=== PATIENT | female | born 1955 | race Caucasian/White ===

== ENCOUNTER → 2016-11-14 | Outpatient (CLI) | payer BC ==
[~2016-11-14] MED LIST: ACETAMINOPHEN325 M1 PO; ALLERGY INJECTION SUBQ; ASPIR 8181 MG PO; IBUPROFEN 200200 M1 PO; IBUPROFEN 600600 M1 PO; IRON; LEVOTHROID25 MCG PO; LEVOTHYROXIN0.088 MG PO; NORCO 5-325 TA1 EACH PO; NORFLEX100 MG PO; OMEGA-3100 MG PO; PHENERGAN-CODE120 ML PO; PREDNISONE 10 M10 M1 PO; VALIUM5 MG PO; VICODIN 5-5001 EACH PO; ZPAK PO
== END ==
LOC: RAD 11:52
DX: R05 Cough (principal)

== ENCOUNTER → 2019-12-31 | Outpatient (CLI) | payer OTHER | LOC: CAT 16:19 | DX: Z13.6 Encounter for screening for cardiovascular disorders (principal); I25.10 Atherosclerotic heart disease of native coronary artery without angina pectoris; E78.00 Pure hypercholesterolemia, unspecified ==

== ENCOUNTER → 2020-04-13 | Outpatient (CLI) | payer BC, OTHER | LOC: NUC 09:47 | PROVIDERS: ATTEND Neuromusculoskeletal Medicine & OMM | DX: M81.0 Age-related osteoporosis without current pathological fracture (principal); M85.88 Other specified disorders of bone density and structure, other site ==

== ENCOUNTER → 2021-04-15 | Outpatient (CLI) | payer OTHER | LOC: CAT 12:19 | PROVIDERS: ATTEND Neuromusculoskeletal Medicine & OMM | DX: Z13.6 Encounter for screening for cardiovascular disorders (principal) ==